=== PATIENT | female | born 2000 | race Caucasian/White ===

== ENCOUNTER 2022-04-14 07:43 | Emergency (ER) | payer BC ==
[2022-04-14 07:53] VITALS: BP 124/82; PULSE 78; TEMP 98; BMI 31.1
== END 2022-04-14 08:30 | disposition home or self-care (01) ==
LOC: FER 07:43
DX: S93.431A Sprain of tibiofibular ligament of right ankle, initial encounter (principal); X50.0XXA Overexertion from strenuous movement or load, initial encounter
CPT/HCPCS: 73610-TC-RT-FY; 99283-25